=== PATIENT | male | born 1940 | race Caucasian/White ===

== ENCOUNTER 2017-08-26 23:34 | Emergency (ER) | payer MEDICARE, OTHER ==
[2017-08-27] MEDS: TETANUS/DIPHTHERIA TOXOID ADULT 0.5 ML VIAL IM (00:35)
== END 2017-08-27 01:05 | disposition home or self-care (01) ==
LOC: PHED 23:34
DX: S61.012A Laceration without foreign body of left thumb without damage to nail, initial encounter (principal); W26.0XXA Contact with knife, initial encounter; Z23 Encounter for immunization
CPT/HCPCS: 90471; 90714; 99283-25